=== PATIENT | female | born 1945 | race Two or more races ===

== ENCOUNTER 2021-11-11 05:38 | Day surgery (SDC) | payer OTHER ==
[~2021-11-11] VITALS: Ht 157.5 cm; Wt 64.4 kg
[~2021-11-11 05:38] MED LIST: DIOVAN160 M1; FENOFIBRATE160 MG; JANUMET 50-5001 EACH; PANTOPRAZOLE SO20 MG
== END 2021-11-11 14:50 | disposition home or self-care (01) ==
LOC: CIR.AMB 05:38 → EDBD 09:45 → CIR.AMB 14:50
PROVIDERS: ATTEND Orthopaedic Surgery
DX: G57.82 Other specified mononeuropathies of left lower limb (principal); Z20.822 Contact with and (suspected) exposure to COVID-19; I10 Essential (primary) hypertension; E11.9 Type 2 diabetes mellitus without complications; G43.909 Migraine, unspecified, not intractable, without status migrainosus